=== PATIENT | female | born 1975 | race Caucasian/White ===

== ENCOUNTER 2017-03-17 15:50 | Observation (INO) ==
[2017-03-17] MEDS ORDERED: Clindamycin 600 MG/50 ML 600 MG/50 ML IV.SOLN IVPB ONE (16:21)
--- NOTE | 2017-03-17 16:23 | Emergency Department Note ---
Disposition Clinical Impression: Cellulitis Disposition: Admitted As Inpatient Condition: Fair Time of Disposition: 19:48 (jacklyn nakiav [facility]) Skin/Abscess/FB HPI Chief complaint: ED Skin/Abscess/Foreign Body Stated complaint: boil that was opened on wednesday Time Seen by Provider: 03/17/17 17:45 Source: patient Mode of arrival: ambulatory Limitations: no limitations Nursing Notes Reviewed: Yes Vital Signs Reviewed: Yes HPI Narrative: 41-year-old female had been seen the other day had an I&D done with drainage and iodoform packing despite antibiotics it has gotten worse results come back showing that is susceptible to majority of antibiotics being staph aureus patient states though that the Bactrim is not covering his got worse she denies fever chills lightheadedness did not identify swelling difficult breathing or difficulty urinating or stooling she denies any additional complaints other than having increasing redness in the mons pubis area Pt Subjective Complaint: other (Abscess on the mons pubis with recent I&D increasing redness and erythema) Onset (ago): day(s) Tetanus Up to Date: yes Location: genitals Severity: moderate Severity scale (1-10): 5 Quality: aching Consistency: constant, Worsening Improves with: none Worsens with: none Associated symptoms: Reports: other. Denies: fever, chills, rigors, itching, nausea, vomiting, malaise, arthralgias, myalgias, cough, shortness of breath Treatments prior to arrival: other (I&D performed at the hospital with drainage and packing placed has been on antibiotics and pain medication) Home Medications Medication Instructions Recorded Confirmed Metoprolol [Lopressor] 100 mg PO BID 03/15/17 03/17/17 Topiramate [Topamax] 50 mg PO DAILY 03/15/17 03/17/17 Allergies Allergy/AdvReac Type Severity Reaction Status Date / Time aspirin Allergy Rash Verified 03/15/17 10:13 diazepam [From Valium] Allergy Itching Verified 03/17/17 18:34 Penicillins Allergy Rash Verified 03/15/17 10:13 vancomycin Allergy See Verified 03/15/17 10:13 Comments All systems ED: reviewed and negative except as stated. Review of Systems: As Per HPI Constitutional: Denies: fever, chills Eyes: Denies: eye pain ENT ED: Denies: ear pain Cardiovascular: Denies: chest pain Respiratory: Denies: cough Gastrointestinal: Reports: abdominal pain. Denies: nausea, vomiting Musculoskeletal: Denies: back pain Integumentary: Denies: rash Neurological: Denies: headache Psychiatric: Denies: anxiety Endocrine: Denies: fatigue Hematological/Lymphatic: Denies: easy bleeding Past Medical History - Past Medical History Attestation: Yes The following information was validated with the patient. Source: patient, old records reviewed, nursing notes reviewed Medical history: Reports: diabetes, hypertension, other Surgical history: Reports: appendectomy, cholecystectomy, other Psychiatric history: Reports: no psych history SULKY DRIVER history: Reports: no SULKY DRIVER history - Social History Smoking Status: Current every day smoker Smokeless Tobacco Status: No Alcohol use: Reports: none Drug use: Reports: none Physical Exam - General Limitations: no limitations General appearance: alert, in no apparent distress - Head Head exam: atraumatic, normocephalic, normal inspection - Eye Eye exam: Present: normal appearance, PERRL, EOMI - ENT ENT exam: normal exam, normal oropharynx, mucous membranes moist, normal external ear exam - Neck Neck exam: Present: normal inspection, full ROM, trachea midline - Chest Chest inspection: Present: normal inspection, symmetric chest wall rise - Respiratory Respiratory exam: Present: normal lung sounds bilaterally - Cardiovascular Cardiovascular exam: Present: regular rate, normal rhythm, normal heart sounds - Abdominal Exam Abdominal exam: Present: soft, Non-Tender, normal bowel sounds, other (Mons pubis is red and edematous on bilateral sides with a small puncture daniel on the left with iodoform gauze present it does not appear to be is red around the region which was seen the other day by myself when the I&D was performed the cellulitis does appear to be slightly larger in area involved there is no swelling of the clitoris). Absent: mass, pulsatile mass - Extremities Exam Extremities exam: Present: normal inspection, full ROM, normal capillary refill. Absent: tenderness, pedal edema, joint swelling, calf tenderness - Expanded Lower Extremity Exam Gait: observed and normal - Back Exam Back exam: Present: normal inspection, full ROM. Absent: muscle spasm - Neurological Exam Neurological exam: Present: alert, oriented X3, CN II-XII intact - Psychiatric Psychiatric exam: Present: normal affect, normal mood, depressed - Skin Skin exam: Present: warm, dry, intact, normal color Course Course Narrative: Patient was seen and examined patient was started on antibiotics here in the emergency room IV because she has failed outpatient therapy patient was admitted to [facility] service is Dr. Richards after CAT scan showed no evidence of abscess requiring I&D Vital Signs Temperature 96.1 F L 03/17/17 15:54 Pulse Rate 100 03/17/17 15:54 Respiratory Rate 17 03/17/17 15:54 Blood Pressure 133/87 03/17/17 15:54 O2 Sat by Pulse Oximetry 98 03/17/17 15:54 Temperature 98.9 F 03/17/17 17:46 Pulse Rate 86 03/17/17 17:46 Respiratory Rate 16 03/17/17 17:46 Blood Pressure 127/85 03/17/17 17:46 O2 Sat by Pulse Oximetry 96 03/17/17 17:46 Oxygen Delivery Oxygen Delivery Room Air Skin/Abscess/Foreign Body - Differential Diagnosis Likely: abscess of skin or subcutaneous tissue, cellulitis - Medical Records Medical records reviewed: Yes I reviewed the patient's medical records. - Lab Data Lab results reviewed: Yes I reviewed the patient's lab results. Result diagrams: 03/17/17 16:55 03/17/17 16:55 Lab Results 03/17/17 03/17/17 03/17/17 Range/Units 16:55 16:55 16:55 WBC 7.7 (4.3-11.1) K/mcL RBC 4.48 (3.82-4.97) M/mcL Hgb 14.0 (11.5-15.4) g/dL Hct 40.9 (35.3-44.9) % MCV 91.3 (83.0-100.0) fL MCH 31.3 (28.0-33.3) pg MCHC 34.2 (31.6-35.5) g/dL RDW 12.5 (11.5-14.5) % Plt Count 285 (140-400) K/mcL MPV 10.5 (9.4-12.4) fL Immature Gran % 0.3 (0-4) % Seg Neutrophils % 54.9 % Lymphocytes % 32.8 % Monocytes % 7.2 % Eosinophils % 3.9 % Basophils % 0.9 % Neutrophils # 4.2 (1.6-8.9) K/mcL Lymphocytes # 2.5 (0.6-4.6) K/mcL Monocytes # 0.6 (0.0-1.3) K/mcL Eosinophils # 0.3 (0.0-0.6) K/mcL Basophils # 0.1 (0.0-0.2) K/mcL VBG Lactic Acid 1.7 (0.5-2.2) mmol/L Sodium 140 (136-145) mEq/L Potassium 4.0 (3.5-4.5) mEq/L Chloride 105 (98-109) mEq/L Carbon Dioxide 23 (19-29) mEq/L BUN 13 (7-20) mg/dL Creatinine 0.92 (0.57-1.11) mg/dL Est GFR ( Amer) > 60 (> 60) Est GFR (Non-Af Amer) > 60 (> 60) BUN/Creatinine Ratio 14 (6-26) Glucose 159 H (70-99) mg/dL Calculated Osmolality 293 (280-300) Calcium 9.8 (8.6-10.8) mg/dL Total Bilirubin 0.5 (0.2-1.2) mg/dL AST 76 H (5-34) Units/L ALT 127 H (0-55) Units/L Alkaline Phosphatase 104 (38-126) Units/L Serum Total Protein 8.3 (6.0-8.3) g/dL Albumin 3.6 (3.5-5.0) g/dL Globulin 4.7 H (2.4-3.5) g/dL Albumin/Globulin Ratio 0.8 L (1.1-2.2) - Radiology Data Radiology results reviewed: Yes I reviewed the patient's radiology results. ITS Impressions Abdomen/Pelvis CT 03/17/17 16:21 IMPRESSION: 1. Findings most compatible cellulitis in the left inguinal region. No drainable fluid collection is identified. D/ / Ahmet Briceño MD / Ahmet Briceño MD Interpreting Provider: Ahmet Briceño MD Critical Care Time Critical Care Time: No
[2017-03-17] MEDS ORDERED: 0.9 % Sodium Chloride 1,000 ML IVC SCH ×2 (16:30→17:30)
[2017-03-17 17:13] LABS: Basophils # 0.1 K/mcL (0.0-0.2); Basophils % 0.9 %; Eosinophils # 0.3 K/mcL (0.0-0.6); Eosinophils % 3.9 %; Hematocrit 40.9 % (35.3-44.9); Immature Granulocytes % 0.3 % (0-4); Lymphocytes # 2.5 K/mcL (0.6-4.6); Lymphocytes % 32.8 %; Mean Corpuscular HGB Conc 34.2 g/dL (31.6-35.5); Mean Corpuscular Hemoglobin 31.3 pg (28.0-33.3); Mean Corpuscular Volume 91.3 fL (83.0-100.0); Mean Platelet Volume 10.5 fL (9.4-12.4); Monocytes # 0.6 K/mcL (0.0-1.3); Monocytes % 7.2 %; Neutrophils # 4.2 K/mcL (1.6-8.9); Platelet Count 285 K/mcL (140-400); Red Blood Count 4.48 M/mcL (3.82-4.97); Red Cell Distribution Width 12.5 % (11.5-14.5); Segmented Neutrophils % 54.9 %
[2017-03-17] MEDS ORDERED: *HR* HYDROcodone/Acet 5/325 mg TABLET PO SCH ×2 (17:15→23:15)
[2017-03-17 17:30] LABS: Alanine Aminotransferase 127 Units/L (0-55); Albumin 3.6 g/dL (3.5-5.0); Albumin/Globulin Ratio 0.8 (1.1-2.2); Alkaline Phosphatase 104 Units/L (38-126); Aspartate Amino Transferase 76 Units/L (5-34); BUN/Creatinine Ratio 14 (6-26); Bilirubin,Total 0.5 mg/dL (0.2-1.2); Blood Urea Nitrogen 13 mg/dL (7-20); Calcium 9.8 mg/dL (8.6-10.8); Carbon Dioxide 23 mEq/L (19-29); Chloride 105 mEq/L (98-109); Globulin 4.7 g/dL (2.4-3.5); Glucose 159 mg/dL (70-99); Osmolality,Calculated 293 (280-300); Sodium 140 mEq/L (136-145); Total Protein 8.3 g/dL (6.0-8.3); eGFR For African Americans > 60 (> 60); eGFR For Non-African Americans > 60 (> 60)
[2017-03-17] MEDS ORDERED: *HR* Dextrose 50 % in Water (Syg) 50 ML SYRINGE IVP PRN (17:30)
[2017-03-17] MEDS ORDERED: Dextrose Gel 15 GM PO PRN ×2 (17:30)
[2017-03-17] MEDS ORDERED: D5% in Water 1,000 ML IVC PRN (17:30)
[2017-03-17] MEDS ORDERED: Naloxone 0.4 MG/ML INJ IVP PRN (17:30)
[2017-03-17] MEDS: *HR* HYDROcodone/Acet 5/325 mg TABLET PO PRN (18:56)
[2017-03-17] MEDS: Lactobacillus 1 EACH CAP.SPRINK PO SCH (21:26)
[2017-03-18] MEDS: ceFAZolin 1,000 MG in D5% in Water (Mini-Bag+) 100 ML IVPB SCH ×2 (00:37→08:18)
[2017-03-18] MEDS: *HR* HYDROcodone/Acet 5/325 mg TABLET PO PRN ×2 (00:37→06:37)
[2017-03-18 06:14] LABS: Basophils # 0.1 K/mcL (0.0-0.2); Basophils % 1.1 %; Eosinophils # 0.3 K/mcL (0.0-0.6); Eosinophils % 5.4 %; Hematocrit 36.4 % (35.3-44.9); Hemoglobin 12.2 g/dL (11.5-15.4); Immature Granulocytes % 0.5 % (0-4); Lymphocytes # 2.3 K/mcL (0.6-4.6); Mean Corpuscular HGB Conc 33.5 g/dL (31.6-35.5); Mean Corpuscular Volume 92.4 fL (83.0-100.0); Mean Platelet Volume 10.4 fL (9.4-12.4); Monocytes # 0.5 K/mcL (0.0-1.3); Monocytes % 7.7 %; Neutrophils # 2.9 K/mcL (1.6-8.9); Platelet Count 229 K/mcL (140-400); Red Blood Count 3.94 M/mcL (3.82-4.97); Red Cell Distribution Width 12.7 % (11.5-14.5); Segmented Neutrophils % 47.3 %
[2017-03-18 06:38] LABS: Prothrombin Time 10.3 Seconds (9.4-12.1)
[2017-03-18 06:40] LABS: Activated Partial Thrombo Time 31.2 Seconds (26.0-36.0)
[2017-03-18 06:50] VITALS: BP 124/70
[2017-03-18 07:08] LABS: BUN/Creatinine Ratio 16 (6-26); Blood Urea Nitrogen 13 mg/dL (7-20); Calcium 8.9 mg/dL (8.6-10.8); Carbon Dioxide 21 mEq/L (19-29); Chloride 107 mEq/L (98-109); Glucose 209 mg/dL (70-99); Osmolality,Calculated 292 (280-300); Potassium 4.2 mEq/L (3.5-4.5); Sodium 138 mEq/L (136-145); eGFR For African Americans > 60 (> 60); eGFR For Non-African Americans > 60 (> 60)
[2017-03-18] MEDS ORDERED: Insulin LISPRO 300 UNITS/3 ML VIAL SQ SCH (07:30)
[2017-03-18] MEDS: Lactobacillus 1 EACH CAP.SPRINK PO SCH (08:16)
[2017-03-18] MEDS ORDERED: Topiramate 25 MG TABLET PO SCH ×2 (09:00)
--- NOTE | 2017-03-18 11:29 | Internal Med History&Physical ---
Date of Encounter: 03/18/17 Time of Encounter: 10:55 Assessment and Plan (1) Abscess of skin or subcutaneous tissue Current visit: No Status: Acute Culture report from the March 15 procedure shows MSSA. She was started on IV Ancef. Qualifiers: Site of cutaneous abscess: other site Qualified Code(s): L02.818 - Cutaneous abscess of other sites Internal Medicine - H&P: HPI Chief complaint: Abscess Admitted From: Home Plans for Post Hospital Care: Home History of present illness: Ms. Michele is a 41 year old female who returned to emergency room March 17 after she presented March 15 with an abscess in her left pubic area. She had incision and drainage procedure done at that visit and was prescribed Bactrim DS twice a day for 10 days. She returned stating she had unimproved pain and swelling. She was evaluated and admitted to [facility] floor for ongoing care needs. She states she feels significantly improved now and wishes to be discharged home. Past Med Surg Social Fam HX - Past Medical History Medical history: diabetes, hypertension, other Psychiatric history: no psych history - Past Surgical History Surgical History: appendectomy, cholecystectomy, other - Social History Smoking Status: Current every day smoker Packs per day: 0.3 Smokeless Tobacco Status: No Alcohol use: none Drug use: none - Family History Mother Living Status: Hx Family Cancer: Yes (colon) Hx Family Endocrine Disorder: Yes Father Living Status: Still Living Internal Medicine - H&P: Meds Metoprolol [Lopressor] 100 mg PO BID 03/15/17 [History] Topiramate [Topamax] 50 mg PO DAILY 03/15/17 [History] 3 Allergy/AdvReac Type Severity Reaction Status Date / Time aspirin Allergy Rash Verified 03/15/17 10:13 diazepam [From Valium] Allergy Itching Verified 03/17/17 18:34 Penicillins Allergy Rash Verified 03/15/17 10:13 vancomycin Allergy See Verified 03/15/17 10:13 Comments All Systems PM: A 10-system review of systems was performed and is negative for pertinent findings except as documented above in the HPI. Review of systems: Gen.: She states her weight has been stable past few months Cardiovascular: She has history of hypertension. She reports DVT in the left leg 2009 with complications of compartment syndrome requiring surgical intervention. She has had no recurrence. She denies heart failure pulmonary embolism or OR. Respiratory: She has smoked since age 20 never up to 1 pack per day. She denies chronic lung disease. She has LAYTON and wear CPAP occasionally at bedtime. GI: She has fatty liver disease and had cholecystectomy. She denies disorders of her liver or exocrine pancreas : She had hysterectomy 2007. She denies kidney or bladder disorders Neurologic: She has migraine headaches. She denies large distribution strokes or seizures Endocrine: She was diagnosed with DM 2 approximately 2 years ago. She denies thyroid disease or hyperlipidemia Hematology/oncology: She had segmental resection of left breast cancer 2006. She has regular mammogram follow-ups and is presumed cancer free. She denies anemia or other blood disorders or malignancies. Psychiatric: She denies anxiety depression other mental health issues Musk skeletal: She denies arthritis gout or other bone joint or muscle disorders. - Constitutional Vitals: Temp Pulse Resp BP Pulse Ox 97.9 F 64 16 124/70 96 03/18/17 06:49 03/18/17 06:49 03/18/17 06:49 03/18/17 06:49 03/18/17 06:49 Exam: Gen.: She is well-developed overweight female who appears in no acute distress at present time HEENT: Head is atraumatic and normocephalic. Eyes: EOMI. There is no scleral icterus. Mouth: Mucosa is moist. Neck: Supple and nontender. There is no thyromegaly or adenopathy noted. Heart: Regular without murmurs gallops or ectopics Lungs: No wheezes or crackles are heard. Abdomen: Soft and nontender. No masses or guarding are noted. Extremities: There is no cyanosis edema or clubbing noted. Her Melissa pedis and posttibial pulses are 2 over 2 bilaterally. She has psoriasis on the medial and lateral aspect of her foot bilaterally. Neurologic: Mental status: She is talkative and a good historian. Cranial nerves: Smile is symmetric. Forehead wrinkles bilaterally. Tongue protrudes midline. EOMI. Motor: There is no pronator drift. Cerebellar: Finger to nose is intact bilaterally. Skin: She has mild erythema and induration of the left upper labia majora area. There is a open incision and drainage site without packing in place. The opening is approximately 3 mm. There is no drainage from the site on gentle pressure. Internal Med - H&P Results - Labs CBC & Chem 7: 03/18/17 05:59 03/18/17 05:59 Labs: Short CBC 03/18/17 Range/Units 05:59 WBC 6.1 (4.3-11.1) K/mcL Hgb 12.2 D (11.5-15.4) g/dL Hct 36.4 (35.3-44.9) % Plt Count 229 (140-400) K/mcL Neutrophils # 2.9 (1.6-8.9) K/mcL BMP 03/18/17 05:59 Sodium 138 Potassium 4.2 Chloride 107 Carbon Dioxide 21 BUN 13 Creatinine 0.80 Glucose 209 H Calcium 8.9
--- NOTE | 2017-03-18 11:46 | Discharge Summary ---
Date of Encounter: 03/18/17 Time of Encounter: 10:55 - Discharge Diagnosis (1) Abscess of skin or subcutaneous tissue Priority: Primary Status: Acute Qualifiers: Site of cutaneous abscess: other site Qualified Code(s): L02.818 - Cutaneous abscess of other sites - Discharge Medications Home Medications: Metoprolol [Lopressor] 100 mg PO BID 03/15/17 [History] Topiramate [Topamax] 50 mg PO DAILY 03/15/17 [History] Allergies/Adverse Reactions: 3 Allergy/AdvReac Type Severity Reaction Status Date / Time aspirin Allergy Rash Verified 03/15/17 10:13 diazepam [From Valium] Allergy Itching Verified 03/17/17 18:34 Penicillins Allergy Rash Verified 03/15/17 10:13 vancomycin Allergy See Verified 03/15/17 10:13 Comments Date of admission: 03/17/17 17:26 Primary care physician: Juany Romeo CNP - Patient Status Disposition: Home, Self-Care Condition: Fair Functional capacity at discharge: independent ambulation Overall status at discharge: patient is progressing back to baseline - Discharge Instructions Follow Up With: Juany Romeo CNP [Primary Care Provider] - 1 week - Diet and Activity Activity: resume usual activities as tolerated Diet: advance to your usual diet Hospital course: Ms. Michele is a 41 year old female who returned to emergency room March 17 after she presented March 15 with an abscess in her left pubic area. She had incision and drainage procedure done at that visit and was prescribed Bactrim DS twice a day for 10 days. She returned stating she had unimproved pain and swelling. She was evaluated and admitted to [facility] for ongoing care needs. Initial orders were written by the emergency room physician. I saw her on March 18 and performed a history physical and discharge. She was started on IV Ancef. By the time I saw her she stated her pain and erythema had significantly improved. Her wound size had decreased so no further packing was needed. She felt stable for discharge home which I felt was [place]. She will resume Septra DS prescribed March 15. She will also be given lactobacillus. She will follow with her PCP within one week. - Time Spent with Patient Total time spent providing and/or coordinating discharge services: - Constitutional Vitals: Temp Pulse Resp BP Pulse Ox 97.9 F 64 16 124/70 96 03/18/17 06:49 03/18/17 06:49 03/18/17 06:49 03/18/17 06:49 03/18/17 06:49
== END 2017-03-18 12:20 | disposition home or self-care (01) ==
LOC: EMEROOPIK 15:50 → INPPIK 15:50
PROVIDERS: ADMIT Internal Medicine; ATTEND Internal Medicine